=== PATIENT | female | born 1950 | race Caucasian/White ===

== ENCOUNTER 2017-03-31 11:35 | Inpatient (IN) | payer MEDICARE, OTHER ==
[~2017-03-31] VITALS: Ht 177.8 cm; Wt 77.1 kg
[~2017-03-31 11:35] MED LIST: AMLO5TAB4; CARI250T; CLON0.5T; COM10; INSU100C11; METO10TA3; OMEP20CA10; OXYC15TA82 PO; OXYC5TAB92; PHEN100C4 PO; QUET50TA11; SERT25TA74; TEMA15CA46
[2017-03-31] MEDS ORDERED: METHYLPREDNISOLONE SOD SUCC 125 MG/2 ML VIAL IV ONE (12:45)
[2017-03-31] MEDS ORDERED: CLINDAMYCIN 600 MG in DEXTROSE 5% WATER 50 ML IV ONE (13:00)
[2017-03-31 13:18] LABS: BASOPHILS % 0.2 % (0.0-2.0); EOSINOPHILS % 1.5 % (0.0-5.0); HEMATOCRIT. 28.1 % (36.0-48.0); HEMOGLOBIN. 9.5 g/dL (12.0-16.0); LYMPHOCYTES % 25.3 % (20.0-50.0); MEAN CORPUSCULAR HEMOGLOBIN 31.6 pg (28.0-32.0); MEAN CORPUSCULAR VOLUME 93.1 fL (81.0-99.0); MEAN PLATELET VOLUME 10.7 fl (7.4-10.4); MONOCYTES % 6.3 % (2.0-8.0); NEUTROPHILS % 66.7 % (40.0-76.0); PLATELET 140 x1000/uL (130-400); RED BLOOD CELL COUNT 3.02 mill/uL (4.2-5.4); RED CELL DISTRIBUTION WIDTH 14.1 % (11.6-14.6)
[2017-03-31 13:47] LABS: CLARITY URINE CLEAR (CLEAR); COLOR URINE YELLOW (YELLOW); GLUCOSE URINE TRACE (NEGATIVE); KETONES URINE NEGATIVE (NEGATIVE); LEUKOCYTE ESTERASE URINE 1+ (NEGATIVE); NITRITE URINE NEGATIVE (NEGATIVE); OCCULT BLOOD URINE TRACE (NEGATIVE); PROTEIN URINE NEGATIVE (NEGATIVE); SPECIFIC GRAVITY URINE 1.011 (1.005-1.030); UROBILINOGEN URINE 0.2 E.U./dL (0.2-1.0)
[2017-03-31] MEDS ORDERED: SODIUM POLYSTYRENE SULFONATE 15 G/60 ML BOT PO NR (19:00)
[2017-03-31] MEDS ORDERED: DEXTROSE 50% WATER 50ML SYRINGE IV PRN (19:00)
[2017-03-31] MEDS ORDERED: DIPHENHYDRAMINE 50MG/ML VIAL IV PRN (19:00)
[2017-03-31] MEDS ORDERED: NITROGLYCERIN 0.4MG TABLET SL SL PRN (19:00)
[2017-03-31] MEDS ORDERED: TRAMADOL 50MG TABLET PO PRN (19:00)
[2017-03-31] MEDS ORDERED: ONDANSETRON HCL 4MG/2ML VIAL IV PRN (19:00)
[2017-03-31] MEDS ORDERED: MAGNESIUM/ALUMINUM HYDROXIDE/SIMETHICONE 30ML UDC PO PRN (19:00)
[2017-03-31] MEDS ORDERED: DOCUSATE SODIUM 100MG CAPSULE PO PRN (19:00)
[2017-03-31] MEDS ORDERED: IPRATROPIUM/ALBUTEROL 0.5-3(2.5)MG/3ML NEB INH PRN (19:00)
[2017-03-31] MEDS ORDERED: ACETAMINOPHEN 325MG TABLET PO PRN (19:00)
[2017-03-31] MEDS ORDERED: NA PHOS,M-B/NA PHOS,DI-BA ENEMA 118ML PR PRN (19:00)
[2017-03-31] MEDS ORDERED: CLONIDINE 0.1MG TABLET PO PRN (19:00)
[2017-03-31] MEDS ORDERED: GUAIFENESIN 200MG/10ML SUGAR FREE UDC PO PRN (19:00)
[2017-03-31 19:50] LABS: HDL CHOLESTEROL 68 mg/dL (40-59); LDL CHOLESTEROL 105 mg/dL (5-100)
[2017-03-31] MEDS: INSULIN LISPRO 100 UNITS/ML SUBCUT SCH (21:00)
[2017-03-31] MEDS: BLOOD SUGAR DIAGNOSTIC STRIP TEST SCH (21:00)
[2017-03-31 21:39] LABS: *AMPHETAMINES SCREEN URINE NEGATIVE (NEGATIVE); *BARBITURATES SCREEN URINE NEGATIVE (NEGATIVE); *BENZODIAZEPINES SCREEN URINE PRESUMTIVE POSITIVE (NEGATIVE); *COCAINE SCREEN URINE NEGATIVE (NEGATIVE); CANNABINOID URINE SCREEN NEGATIVE (NEGATIVE); METHADONE URINE SCREEN NEGATIVE (NEGATIVE); OPIATES URINE SCREEN NEGATIVE (NEGATIVE); PHENCYCLIDINE URINE SCREEN NEGATIVE (NEGATIVE)
[2017-03-31 22:14] VITALS: BP 132/83
[2017-03-31] MEDS: LORAZEPAM 2MG/ML CPJ IV PRN (22:59)
[2017-03-31] MEDS: METHYLPREDNISOLONE SOD SUCC 125 MG/2 ML VIAL IV SCH (22:59)
[2017-03-31] MEDS: ZOLPIDEM TARTRATE 5MG TABLET PO PRN (23:00)
[2017-03-31 23:06] LABS: CREATINE KINASE 91 IU/L (26-192); CREATINE KINASE MB FRACTION 2.6 ng/mL (0.5-3.6); TROPONIN I < 0.02 ng/mL (0.00-0.04)
[2017-03-31] MEDS: ENOXAPARIN 40MG/0.4ML SYR SUBCUT SCH (23:24)
[2017-03-31] MEDS: CLINDAMYCIN 600 MG in DEXTROSE 5% WATER 50 ML IV SCH (23:52)
[2017-04-01] VITALS: BP 96/50
[2017-04-01] MEDS: INSULIN DETEMIR UD 100 UNITS/ML SYR SUBCUT SCH ×2 (00:03→22:21)
[2017-04-01] MEDS ORDERED: LEVOFLOXACIN 500MG PREMIX 100 ML IV NR (01:00)
[2017-04-01] MEDS ORDERED: ZOLP10TA2 PO (02:26)
[2017-04-01] MEDS ORDERED: LEVEMIR SUBCUT (02:26)
[2017-04-01] MEDS ORDERED: ALPR2TAB2 PO (02:26)
[2017-04-01] MEDS ORDERED: ENAL20TA PO (02:26)
[2017-04-01] MEDS ORDERED: SERT100T PO (02:26)
[2017-04-01 04:00] VITALS: BP 107/68
[2017-04-01] MEDS: BLOOD SUGAR DIAGNOSTIC STRIP TEST SCH ×4 (06:13→21:56)
[2017-04-01 06:38] LABS: CREATINE KINASE 73 IU/L (26-192); TROPONIN I < 0.02 ng/mL (0.00-0.04)
[2017-04-01] MEDS: METHYLPREDNISOLONE SOD SUCC 125 MG/2 ML VIAL IV SCH ×3 (06:51→22:04)
[2017-04-01] MEDS: INSULIN LISPRO 100 UNITS/ML SUBCUT SCH ×4 (06:58→22:05)
[2017-04-01 08:32] VITALS: BP 103/52
[2017-04-01] MEDS: PANTOPRAZOLE SODIUM 40 MG/VIAL IV SCH (09:34)
[2017-04-01] MEDS: CLINDAMYCIN 600 MG in DEXTROSE 5% WATER 50 ML IV SCH (09:34)
[2017-04-01] MEDS: GUAIFENESIN/DM 600MG/30MG ER TAB 12HR PO SCH ×2 (09:34→22:04)
[2017-04-01] MEDS ORDERED: LACTULOSE 20G/30ML UDC PO NR (11:45)
[2017-04-01 12:24] VITALS: BP 145/89
[2017-04-01 16:41] VITALS: BP 113/67
[2017-04-01 20:00] VITALS: BP 108/66
[2017-04-01] MEDS: ENOXAPARIN 40MG/0.4ML SYR SUBCUT SCH (22:04)
[2017-04-01] MEDS: ZOLPIDEM TARTRATE 5MG TABLET PO PRN (22:22)
[2017-04-02] VITALS: BP 103/65
[2017-04-02 04:00] VITALS: BP 114/64
[2017-04-02] MEDS: BLOOD SUGAR DIAGNOSTIC STRIP TEST SCH ×2 (06:03→11:09)
[2017-04-02] MEDS: METHYLPREDNISOLONE SOD SUCC 125 MG/2 ML VIAL IV SCH ×2 (06:11→13:21)
[2017-04-02] MEDS: LORAZEPAM 2MG/ML CPJ IV PRN (06:11)
[2017-04-02] MEDS: INSULIN LISPRO 100 UNITS/ML SUBCUT SCH ×2 (06:21→11:13)
[2017-04-02] MEDS: PANTOPRAZOLE SODIUM 40 MG/VIAL IV SCH (08:07)
[2017-04-02] MEDS: GUAIFENESIN/DM 600MG/30MG ER TAB 12HR PO SCH (08:07)
[2017-04-02 08:16] VITALS: BP 98/57
[2017-04-02 11:17] VITALS: BP 106/67
[2017-04-02 12:00] VITALS: BP 114/70
[2017-04-02] MEDS ORDERED: LEVOFLOXACIN 250MG PREMIX 50 ML IV SCH (21:00)
[2017-04-02] MEDS ORDERED: INSULIN DETEMIR UD 100 UNITS/ML SYR SUBCUT SCH (22:00)
== END 2017-04-02 13:35 | disposition home or self-care (01) | DRG 915 ==
LOC: ER 11:35 → 5WST 13:09 → SUPCPDRO 18:18 → EDBEDREQSVC 19:34 → EDBEDREQTM 19:34 → ENRESERV 20:59
PROVIDERS: ADMIT Internal Medicine; ATTEND Internal Medicine
DX: T78.3XXA Angioneurotic edema, initial encounter (principal); N17.0 Acute kidney failure with tubular necrosis; N39.0 Urinary tract infection, site not specified; K12.2 Cellulitis and abscess of mouth; I10 Essential (primary) hypertension; E87.5 Hyperkalemia; E11.9 Type 2 diabetes mellitus without complications; T46.4X5A Adverse effect of angiotensin-converting-enzyme inhibitors, initial encounter; Y92.89 Other specified places as the place of occurrence of the external cause; Z88.8 Allergy status to other drugs, medicaments and biological substances; Z88.1 Allergy status to other antibiotic agents; Z91.041 Radiographic dye allergy status; Z79.4 Long term (current) use of insulin; Z79.899 Other long term (current) drug therapy
CPT/HCPCS: 36415; 70490; 80048; 80061; 80076; 80305; 81001; 82550; 82553; 82962; 83036; 84484; 85025; 87086; 93970; 96365; 96375; 99291; C9113; J1650; J1815; J1956; J2060; J2930; J3490; J7050; J7060

== ENCOUNTER 2018-10-05 16:19 | Inpatient (IN) | payer MEDICARE, OTHER ==
[~2018-10-05] VITALS: Ht 177.8 cm; Wt 72.6 kg
[~2018-10-05 16:19] MED LIST changes: +ALPR2TAB2 PO; +ENAL20TA PO; +LEVEMIR SUBCUT; +QUET50TA; -QUET50TA11; +SERT100T PO; -TEMA15CA46; +TEMA15CA5; +ZOLP10TA2 PO
[2018-10-05] MEDS ORDERED: MORPHINE SULFATE 4 MG/ML CPJ (NOT FOR IM USE) IV ONE (17:00)
[2018-10-05 18:49] LABS: BASOPHILS % 0.3 % (0.0-2.0); EOSINOPHILS % 0.6 % (0.0-5.0); HEMATOCRIT. 35.3 % (36.0-48.0); HEMOGLOBIN. 11.9 g/dL (12.0-16.0); LYMPHOCYTES % 21.7 % (20.0-50.0); MEAN CORPUSCULAR HEMOGLOBIN 32.9 pg (28.0-32.0); MEAN CORPUSCULAR VOLUME 97.4 fL (81.0-99.0); MEAN PLATELET VOLUME 10.9 fl (7.4-10.4); MONOCYTES % 5.2 % (2.0-8.0); NEUTROPHILS % 72.2 % (40.0-76.0); PLATELET 212 x1000/uL (130-400); RED BLOOD CELL COUNT 3.63 mill/uL (4.2-5.4)
[2018-10-05] MEDS ORDERED: SODIUM CHLORIDE 0.9% 1,000 ML IV ONE (19:00)
[2018-10-05 19:12] LABS: CLARITY URINE CLEAR (CLEAR); COLOR URINE YELLOW (YELLOW); KETONES URINE NEGATIVE (NEGATIVE); LEUKOCYTE ESTERASE URINE NEGATIVE (NEGATIVE); NITRITE URINE NEGATIVE (NEGATIVE); OCCULT BLOOD URINE TRACE (NEGATIVE); PH URINE 5.5 (4.5-8.0); PROTEIN URINE TRACE (NEGATIVE); SPECIFIC GRAVITY URINE 1.016 (1.005-1.030); UROBILINOGEN URINE 0.2 E.U./dL (0.2-1.0)
[2018-10-05] MEDS ORDERED: MORPHINE SULFATE 2 MG/ML CPJ (NOT FOR IM USE) IV ONE (19:15)
[2018-10-05] MEDS ORDERED: MORPHINE SULFATE 4 MG/ML CPJ (NOT FOR IM USE) IV NR (19:23)
[2018-10-05 19:41] LABS: PARTIAL THROMBOPLASTIN TIME 27.2 sec (23.4-31.0)
[2018-10-05] MEDS ORDERED: MAGNESIUM/ALUMINUM HYDROXIDE/SIMETHICONE 30ML UDC PO PRN (20:15)
[2018-10-05] MEDS ORDERED: GUAIFENESIN 200MG/10ML SUGAR FREE UDC PO PRN (20:15)
[2018-10-05] MEDS ORDERED: CLONIDINE 0.1MG TABLET PO PRN (20:15)
[2018-10-05] MEDS ORDERED: ONDANSETRON HCL 4MG/2ML INJ IV PRN (20:15)
[2018-10-05] MEDS ORDERED: TRAMADOL 50MG TABLET PO PRN (20:15)
[2018-10-05] MEDS ORDERED: DOCUSATE SODIUM 100MG CAPSULE PO PRN (20:15)
[2018-10-05] MEDS ORDERED: DEXTROSE 50% WATER 50ML SYRINGE IV PRN (20:15)
[2018-10-05] MEDS ORDERED: IPRATROPIUM/ALBUTEROL 0.5-3(2.5)MG/3ML NEB INH PRN (20:15)
[2018-10-05] MEDS ORDERED: NITROGLYCERIN 0.4MG TABLET SL SL PRN (20:15)
[2018-10-05] MEDS ORDERED: NA PHOS,M-B/NA PHOS,DI-BA ENEMA 118ML PR PRN (20:15)
[2018-10-05] MEDS ORDERED: FAMOTIDINE 20MG TABLET PO SCH (21:00)
[2018-10-05] MEDS: MORPHINE SULFATE 4 MG/ML CPJ (NOT FOR IM USE) IV PRN (23:05)
[2018-10-06] MEDS ORDERED: INSULIN GLARGINE UD 100 UNITS/ML SYR SUBCUT SCH (03:00)
[2018-10-06] MEDS: INSULIN LISPRO 100 UNITS/ML SUBCUT SCH ×5 (03:09→21:00)
[2018-10-06 04:15] VITALS: BP 153/65
[2018-10-06] MEDS: MORPHINE SULFATE 4 MG/ML CPJ (NOT FOR IM USE) IV PRN ×3 (06:44→19:56)
[2018-10-06] MEDS: BLOOD SUGAR DIAGNOSTIC STRIP TEST SCH ×4 (07:09→21:31)
[2018-10-06] MEDS: FERROUS SULFATE 300MG/5ML UDC PO SCH ×3 (07:50→18:34)
[2018-10-06 08:00] VITALS: BP 166/65
[2018-10-06 09:00] VITALS: BP 152/79
[2018-10-06] MEDS: FAMOTIDINE 20MG TABLET PO SCH (09:00)
[2018-10-06] MEDS: ASCORBIC ACID 500 MG TABLET PO SCH ×2 (09:00→21:28)
[2018-10-06] MEDS: ENOXAPARIN 40MG/0.4ML SYR SUBCUT SCH (09:00)
[2018-10-06] MEDS: ZINC SULFATE 220 MG ( 50 ) CAPSULE PO SCH (09:00)
[2018-10-06] MEDS ORDERED: TRANEXAMIC ACID 1,000 MG in SODIUM CHLORIDE 0.9% 100 ML IV NR (09:00)
[2018-10-06] MEDS ORDERED: VANCOMYCIN HCL 500 MG/VIAL ONE (09:02)
[2018-10-06 12:00] VITALS: BP 146/74
[2018-10-06] MEDS ORDERED: BACITRACIN 50,000 UNITS/VIAL ONE (14:20)
[2018-10-06] MEDS ORDERED: NORMAL SALINE 0.9% 10 ML SYR ONE (14:20)
[2018-10-06] MEDS ORDERED: BACITRACIN 15GM TUBE TOP ONE (14:31)
[2018-10-06] MEDS: SODIUM CHLORIDE 0.9% 1,000 ML IV SCH ×2 (14:32→22:53)
[2018-10-06] MEDS ORDERED: MIDAZOLAM HCL 2 MG/2 ML VIAL ONE (15:28)
[2018-10-06] MEDS ORDERED: PROPOFOL 200MG/20ML VIAL IV ONE (15:28)
[2018-10-06] MEDS ORDERED: HYDROMORPHONE HCL/PF 2MG/ML (OR) ONE (15:28)
[2018-10-06] MEDS ORDERED: CLINDAMYCIN 600 MG in DEXTROSE 5% WATER 50 ML IV SCH (15:50)
[2018-10-06] MEDS ORDERED: KETAMINE HCL 50 MG/ML 10ML ONE (16:00)
[2018-10-06] MEDS ORDERED: HYDROCODONE/ACETAMINOPHEN 5/325MG TABLET PO PRN (16:45)
[2018-10-06] MEDS ORDERED: HYDROCODONE/ACETAMINOPHEN 10/325MG TABLET PO PRN (16:45)
[2018-10-06] MEDS ORDERED: ONDANSETRON HCL 4MG/2ML INJ IV PRN (17:30)
[2018-10-06] MEDS ORDERED: HYDROMORPHONE HCL/PF 2MG/ML CPJ IV PRN ×2 (17:30)
[2018-10-06 18:40] VITALS: BP 140/81
[2018-10-06 20:00] VITALS: BP 141/72
[2018-10-06] MEDS: INSULIN GLARGINE UD 100 UNITS/ML SYR SUBCUT SCH (21:31)
[2018-10-06] MEDS: VANCOMYCIN 500 MG PREMIX 100 ML IV SCH (22:53)
[2018-10-07] VITALS (7 sets, daily range): BP systolic 125–150; BP diastolic 66–86
[2018-10-07] MEDS: MORPHINE SULFATE 4 MG/ML CPJ (NOT FOR IM USE) IV PRN ×5 (00:09→18:31)
[2018-10-07] MEDS: ZOLPIDEM TARTRATE 5MG TABLET PO PRN ×2 (00:46→21:46)
[2018-10-07] MEDS: BLOOD SUGAR DIAGNOSTIC STRIP TEST SCH ×4 (06:44→21:46)
[2018-10-07] MEDS: ASCORBIC ACID 500 MG TABLET PO SCH ×2 (08:35→21:20)
[2018-10-07] MEDS: ZINC SULFATE 220 MG ( 50 ) CAPSULE PO SCH (08:35)
[2018-10-07] MEDS: FAMOTIDINE 20MG TABLET PO SCH (08:35)
[2018-10-07] MEDS: ENOXAPARIN 40MG/0.4ML SYR SUBCUT SCH (08:36)
[2018-10-07] MEDS: INSULIN LISPRO 100 UNITS/ML SUBCUT SCH ×4 (08:39→21:00)
[2018-10-07] MEDS: FERROUS SULFATE 300MG/5ML UDC PO SCH ×3 (08:41→18:30)
[2018-10-07] MEDS: SODIUM CHLORIDE 0.9% 1,000 ML IV SCH (08:42)
[2018-10-07] MEDS: VANCOMYCIN 500 MG PREMIX 100 ML IV SCH ×2 (09:16→21:20)
[2018-10-07] MEDS ORDERED: CLONIDINE 0.1MG TABLET PO PRN (10:45)
[2018-10-07] MEDS ORDERED: ENOXAPARIN 30MG/0.3ML SYR SUBCUT NR (11:14)
[2018-10-07 11:47] LABS: BASOPHILS % 0.4 % (0.0-2.0); EOSINOPHILS % 1.6 % (0.0-5.0); HEMATOCRIT. 34.1 % (36.0-48.0); HEMOGLOBIN. 11.3 g/dL (12.0-16.0); MEAN CORPUSCULAR VOLUME 96.6 fL (81.0-99.0); MEAN PLATELET VOLUME 10.9 fl (7.4-10.4); MONOCYTES % 7.3 % (2.0-8.0); NEUTROPHILS % 79.7 % (40.0-76.0); PLATELET 174 x1000/uL (130-400); RED BLOOD CELL COUNT 3.53 mill/uL (4.2-5.4); RED CELL DISTRIBUTION WIDTH 13.8 % (11.6-14.6)
[2018-10-07] MEDS: ACETAMINOPHEN 325MG TABLET PO PRN ×2 (12:26→21:19)
[2018-10-07] MEDS: ENOXAPARIN 80MG/0.8ML SYR SUBCUT SCH (21:21)
[2018-10-07] MEDS: INSULIN GLARGINE UD 100 UNITS/ML SYR SUBCUT SCH (22:08)
[2018-10-08] VITALS: BP 158/76
[2018-10-08] MEDS: MORPHINE SULFATE 4 MG/ML CPJ (NOT FOR IM USE) IV PRN ×5 (03:33→21:50)
[2018-10-08 04:00] VITALS: BP 145/74
[2018-10-08] MEDS: INSULIN LISPRO 100 UNITS/ML SUBCUT SCH ×4 (06:52→22:17)
[2018-10-08] MEDS: BLOOD SUGAR DIAGNOSTIC STRIP TEST SCH ×4 (06:52→21:00)
[2018-10-08 08:00] VITALS: BP 140/76
[2018-10-08] MEDS: FERROUS SULFATE 300MG/5ML UDC PO SCH ×3 (08:22→17:30)
[2018-10-08] MEDS: ZINC SULFATE 220 MG ( 50 ) CAPSULE PO SCH (08:22)
[2018-10-08] MEDS: FAMOTIDINE 20MG TABLET PO SCH (08:22)
[2018-10-08] MEDS: ASCORBIC ACID 500 MG TABLET PO SCH ×2 (08:22→21:50)
[2018-10-08] MEDS: ENOXAPARIN 80MG/0.8ML SYR SUBCUT SCH ×2 (08:23→21:50)
[2018-10-08 12:00] VITALS: BP 130/80
[2018-10-08] MEDS: VANCOMYCIN 500 MG PREMIX 100 ML IV SCH (13:10)
[2018-10-08 16:00] VITALS: BP 108/70
[2018-10-08] MEDS ORDERED: WARFARIN SODIUM 5MG TABLET PO SCH (18:00)
[2018-10-08] MEDS: ONDANSETRON HCL 4MG/2ML INJ IV PRN (18:09)
[2018-10-08 20:00] VITALS: BP 132/64
[2018-10-08] MEDS: INSULIN GLARGINE UD 100 UNITS/ML SYR SUBCUT SCH (22:17)
[2018-10-09] VITALS: BP 129/61
[2018-10-09] MEDS: VANCOMYCIN 500 MG PREMIX 100 ML IV SCH (00:13)
[2018-10-09 04:00] VITALS: BP 128/71
[2018-10-09] MEDS: MORPHINE SULFATE 4 MG/ML CPJ (NOT FOR IM USE) IV PRN ×5 (05:35→23:30)
[2018-10-09 06:08] LABS: HEMATOCRIT 24.4 % (36.0-48.0); HEMOGLOBIN 8.3 g/dL (12.0-16.0); MEAN CORPUSCULAR HEMOGLOBIN 32.9 pg (28.0-32.0); MEAN CORPUSCULAR VOLUME 96.6 fL (81.0-99.0); PLATELET 137 x1000/uL (130-400); RED BLOOD CELL COUNT 2.53 mill/uL (4.2-5.4); RED CELL DISTRIBUTION WIDTH 13.6 % (11.6-14.6)
[2018-10-09 06:15] LABS: INR 1.1; PROTHROMBIN TIME 11.4 sec (9.1-11.1)
[2018-10-09] MEDS: BLOOD SUGAR DIAGNOSTIC STRIP TEST SCH ×4 (07:24→20:44)
[2018-10-09 08:00] VITALS: BP 120/70
[2018-10-09] MEDS: ZINC SULFATE 220 MG ( 50 ) CAPSULE PO SCH (09:14)
[2018-10-09] MEDS: FAMOTIDINE 20MG TABLET PO SCH (09:14)
[2018-10-09] MEDS: FERROUS SULFATE 300MG/5ML UDC PO SCH ×3 (09:14→16:50)
[2018-10-09] MEDS: ASCORBIC ACID 500 MG TABLET PO SCH ×2 (09:14→20:45)
[2018-10-09] MEDS: ENOXAPARIN 80MG/0.8ML SYR SUBCUT SCH (09:15)
[2018-10-09] MEDS: INSULIN LISPRO 100 UNITS/ML SUBCUT SCH ×4 (09:27→21:53)
[2018-10-09] MEDS: ONDANSETRON HCL 4MG/2ML INJ IV PRN (09:56)
[2018-10-09] MEDS ORDERED: LACTULOSE 20G/30ML UDC PO NR (10:30)
[2018-10-09 12:00] VITALS: BP 123/78
[2018-10-09 13:20] LABS: TOTAL IRON BINDING CAPACITY 172 ug/dL (250-450)
[2018-10-09 16:00] VITALS: BP 145/67
[2018-10-09] MEDS: ACETAMINOPHEN 325MG TABLET PO PRN (16:47)
[2018-10-09 20:00] VITALS: BP 115/67
[2018-10-09] MEDS: INSULIN GLARGINE UD 100 UNITS/ML SYR SUBCUT SCH (21:39)
[2018-10-09] MEDS: ZOLPIDEM TARTRATE 5MG TABLET PO PRN (23:36)
[2018-10-10] VITALS: BP 119/64
[2018-10-10 02:00] VITALS: BP 119/46
[2018-10-10 04:00] VITALS: BP 119/71
[2018-10-10] MEDS: MORPHINE SULFATE 4 MG/ML CPJ (NOT FOR IM USE) IV PRN ×2 (04:40→08:41)
[2018-10-10 05:47] LABS: INR 1.1; PROTHROMBIN TIME 11.5 sec (9.1-11.1)
[2018-10-10 05:48] LABS: HEMATOCRIT 23.9 % (36.0-48.0); HEMOGLOBIN 8.2 g/dL (12.0-16.0); MEAN CORPUSCULAR HEMOGLOBIN 33.1 pg (28.0-32.0); MEAN CORPUSCULAR VOLUME 96.6 fL (81.0-99.0); PLATELET 159 x1000/uL (130-400); RED BLOOD CELL COUNT 2.47 mill/uL (4.2-5.4); RED CELL DISTRIBUTION WIDTH 13.3 % (11.6-14.6)
[2018-10-10] MEDS: BLOOD SUGAR DIAGNOSTIC STRIP TEST SCH ×2 (06:44→12:12)
[2018-10-10 08:00] VITALS: BP 116/69
[2018-10-10] MEDS: ASCORBIC ACID 500 MG TABLET PO SCH (08:40)
[2018-10-10] MEDS: FERROUS SULFATE 300MG/5ML UDC PO SCH ×2 (08:41→12:08)
[2018-10-10] MEDS: FAMOTIDINE 20MG TABLET PO SCH (08:41)
[2018-10-10] MEDS: ZINC SULFATE 220 MG ( 50 ) CAPSULE PO SCH (08:41)
[2018-10-10] MEDS: INSULIN LISPRO 100 UNITS/ML SUBCUT SCH ×2 (08:55→14:00)
[2018-10-10] MEDS ORDERED: OXYCODONE HCL 5MG TABLET PO PRN (09:00)
[2018-10-10] MEDS ORDERED: ENOXAPARIN 80MG/0.8ML SYR SUBCUT SCH (09:45)
[2018-10-10] MEDS: ONDANSETRON HCL 4MG/2ML INJ IV PRN (11:18)
[2018-10-10 12:00] VITALS: BP 119/63
[2018-10-10 13:18] VITALS: BP 119/63
[2018-10-10] MEDS ORDERED: RIVAROXABAN 15 MG TABLET PO SCH (17:50)
[2018-10-10] MEDS ORDERED: WARFARIN SODIUM 5MG TABLET PO SCH (18:00)
== END 2018-10-10 17:17 | DRG 470 ==
LOC: ER 16:19 → 6EST 19:46 → ENRESERV 10-06 01:47
PROVIDERS: ADMIT Internal Medicine; ATTEND Internal Medicine Critical Care Medicine
PROC: 0SRR0JA Replacement of Right Hip Joint, Femoral Surface with Synthetic Substitute, Uncemented, Open Approach (ICD-10-PCS; principal; 2018-10-06)
DX: S72.011A Unspecified intracapsular fracture of right femur, initial encounter for closed fracture (principal); I82.411 Acute embolism and thrombosis of right femoral vein; E87.1 Hypo-osmolality and hyponatremia; N17.9 Acute kidney failure, unspecified; D62 Acute posthemorrhagic anemia; E11.22 Type 2 diabetes mellitus with diabetic chronic kidney disease; G89.4 Chronic pain syndrome; N18.3 Chronic kidney disease, stage 3 (moderate); M19.90 Unspecified osteoarthritis, unspecified site; I12.9 Hypertensive chronic kidney disease with stage 1 through stage 4 chronic kidney disease, or unspecified chronic kidney disease; F32.9 Major depressive disorder, single episode, unspecified; F41.9 Anxiety disorder, unspecified; W18.30XA Fall on same level, unspecified, initial encounter; Y93.K1 Activity, walking an animal; Y92.89 Other specified places as the place of occurrence of the external cause; Y99.8 Other external cause status; Z88.8 Allergy status to other drugs, medicaments and biological substances; Z88.1 Allergy status to other antibiotic agents; Z88.5 Allergy status to narcotic agent; Z91.048 Other nonmedicinal substance allergy status; Z79.899 Other long term (current) drug therapy; Z79.4 Long term (current) use of insulin
CPT/HCPCS: 36415; 71045; 72170; 73502; 80048; 80061; 82010; 82962; 83036; 83540; 83550; 85027; 88305; 88311; 93005; 93970; 96361; 96372; 96374; 96376; 97110; 97116; 97162; 97166; 97530; 97535; 99285; C1776; J1170; J1650; J1815; J2250; J2270; J2405; J2704; J3370; J3490; J7030; J7050; J7060; L1830